=== PATIENT | male | born 1985 | race Caucasian/White ===

== ENCOUNTER 2017-12-06 15:01 | Outpatient (CLI) ==
[2017-05-13 11:44] VITALS: BMI 25.7
--- NOTE | 2017-12-06 16:14 | US ---
Exam: Falcon-scale and color ultrasonographic evaluation of the testicles and scrotum. Comparison: None available. Reason for exam: Scrotal pain. FINDINGS: The right testicle measures approximately 5.6 x 2.6 x 2.9 cm with a heterogeneous appearin g echotexture. There is normal appearing vascularity without evidence of testicular mass lesion. Th e right epididymis is unremarkable. The right scrotal wall measures 0.25 cm which is within normal l imits. There is a small right-sided hydrocele. The left testicle measures approximately 5.1 x 2.5 x 3.7 cm with a heterogeneous appearing echotextur e and normal vascular flow. No parenchymal mass lesion is seen within the left testicle. There is a sub centimeter left epididymal cyst measuring up to 0.2 cm. The left scrotal wall measures 0.25 cm which is within normal limits. There is a small left hydrocel e. Impression: Mild heterogenicity is seen within both the left and right testicle without evidence of testicular to rsion, abnormal vascularity, or mass lesion. Small bilateral hydroceles.
== END 2017-12-06 15:02 | disposition home or self-care (01) ==
LOC: RAD 15:01
PROVIDERS: ATTEND Nurse Practitioner Family
DX: N50.82 Scrotal pain (principal)

== ENCOUNTER 2018-08-21 14:24 | Outpatient (CLI) ==
[2017-05-13 11:44] VITALS: BMI 25.7
== END 2018-08-21 14:25 | disposition home or self-care (01) ==
LOC: RHC-LAB 14:24
PROVIDERS: ATTEND Nurse Practitioner Family
DX: Z00.00 Encounter for general adult medical examination without abnormal findings (principal); F32.9 Major depressive disorder, single episode, unspecified; F43.9 Reaction to severe stress, unspecified; R45.4 Irritability and anger
CPT/HCPCS: 36415; 80053; 80061; 84443; 85025